=== PATIENT | male | born 1940 | race Caucasian/White ===

== ENCOUNTER → 2017-01-17 | Outpatient (CLI) | payer OTHER ==
[~2017-01-17] VITALS: Ht 185.4 cm; Wt 79.4 kg
[~2017-01-17] MED LIST: ALLEGRA ALLERGY60 MG PO; APAP650 PO; CARDIZEM; CARDIZEM CD180 MG PO; CENTRUM SILVER1 EAC4 PO; CIALIS5 MG PO; CO Q-10100 MG PO; COUMADIN 2.5MG2.5 M1 PO; COUMADIN 5 MG TA5 M1 PO; KEFLEX500 MG PO; LIPITOR 20 MG T20 M1 PO; NORCO 5-325 TA1 EACH PO; RAPAFLO4 MG PO; RHINOCORT ALL8.43 ML NASAL; SIMVASTATIN40 MG PO; TURMERIC538 MG PO; VITAMIN D1000 UNI1 PO; VITAMIN D400 UNI2 PO; XARELTO10 MG PO; ZANTAC 150MG T150 MG PO
--- NOTE | ~2017-01-17 | P ---
[facility] [place] [address] PROCEDURE REPORT Name: EMILY,HAVEN Billy Room #: REG [facility]#: [id number] Admission: 01/17/17 Attend Phys: Fortunato Herrera MD Discharge: Date of : 36 Report #: [id number] THIS REPORT FOR: //name// CC: Fortunato Godfrey MD BRIEF HISTORY: The patient is a 76-year-old male who recently was found to be anemic. He is noted dark stools on occasion, but not grossly black stools or grossly bloody stools. PREOPERATIVE DIAGNOSIS: Anemia. POSTOPERATIVE DIAGNOSES: 1. Multiple colon polyps. 2. Rectal polyp. 3. Moderate sigmoid diverticulosis coli. MEDICATIONS: Deep sedation with propofol per anesthesia. SPECIMENS: 1. Cecal polyp. 2. Hepatic flexure polyp. 3. Rectal polyp. ESTIMATED BLOOD LOSS: 3 mL. PROCEDURE: Colonoscopy to cecum and terminal ileum with biopsy. FINDINGS: Prior to propofol sedation, the procedure of colonoscopy discussed with the patient as well as potential risks, benefits, and complications. He indicates he understands and desires to proceed. With the patient in left lateral decubitus position, digital examination was completed, which revealed no abnormalities. Subsequently, the [employer] video colonoscope was introduced into the rectum and advanced under direct vision to the cecum. Done with minimal difficulty. The cecum was identified by the ileocecal valve and the appendiceal orifice. I was able to visualize the distal segment of terminal ileum, which was inspected and noted to be unremarkable. At that point, the scope was slowly withdrawn and careful circumferential views obtained including retroflexing the scope in the ascending colon. Upon slow withdrawal of the scope, the prep was noted to be excellent. The mucosa was within normal limits, normal vascular and normal light reflex. As we withdrew the scope, the mucosa was inspected. In the cecum, a diminutive polyp was seen and removed by biopsy. Scope was further withdrawn and another diminutive polyp was seen and removed by biopsy from the hepatic flexure. As we withdrew the scope through the colon, the mucosa was within normal limits, normal vascular [facility] [address] [place] [address] PROCEDURE REPORT Name: HAVEN DIAZ Room #: REG [facility]#: [id number] Admission: 01/17/17 Attend Phys: Fortunato Herrera MD Discharge: Date of : 36 Report #: [id number] pattern, normal light reflex. No additional abnormalities were seen until we reached the sigmoid colon, which he was noted to have [id number] sigmoid diverticular disease without endoscopic evidence of diverticulitis. The scope was withdrawn in the rectum and upon retroflexion, a small polyp was seen in the distal rectum just above the anal verge. This polyp was removed by biopsy. The scope was withdrawn. The patient tolerated the procedure well. CONDITION OF THE PATIENT UPON DISCHARGE: Following procedure, the patient drowsy, arousable and conversant and will be discharged home when fully ambulatory. INSTRUCTIONS TO THE PATIENT AND FAMILY AT THE TIME ON DISCHARGE: The patient was noted to be anemic. He has had some dark stools, but not grossly bloody stools. Three diminutive polyps were identified and removed as described above. A bleeding lesion was not seen. We will follow up on the pathology of the polyps. If all 3 are adenomas, he should return in 3 years, if one or two adenomas, 5 years be indicated. If none of them are adenomatous, he may not require further routine colonoscopy. He will return to care of Dr. Diana Godfrey and return to see me as needed. Last colonoscopy was in 2008. Withdrawal time from the cecum was approximately 10 minutes and 30 seconds. By: [id number] Fortunato Herrera MD /juanito
--- NOTE | ~2017-01-17 | S ---
[facility] [address] [place] [address] SURGICAL PATH RPT PROCEDURE Name: HAVEN DIAZ Room #: [facility].#: [id number] Admission: 01/17/17 Date of : 36 Discharge: Report #: [id number] Path Case #: [id number] PATHOLOGY REPORT DRAFT COLLECTION DATE: 01/17/2017 RECEIVED DATE: 01/17/2017 SPECIMEN(S) RECEIVED: A.Gastric B.Cecal polyp C.Hepatic flexure polyp D.Rectal polyp
--- NOTE | ~2017-01-17 | P ---
[facility] [place] [address] PROCEDURE REPORT Name: EMILYHAVEN Billy Room #: REG [facility]#: [id number] Admission: 01/17/17 Attend Phys: Fortunato Herrera MD Discharge: Date of : 36 Report #: [id number] THIS REPORT FOR: //name// CC: Fortunato Godfrey MD BRIEF HISTORY: The patient is a 76-year-old male with recent problem with chest pain. He also has throat clearing, has been treated empirically for silent reflux with ranitidine. PREOPERATIVE DIAGNOSES: Chest pain and mild anemia. POSTOPERATIVE DIAGNOSES: 1. Mild diffuse gastritis. 2. Small hiatus hernia. MEDICATIONS: Deep sedation with propofol per anesthesia. SPECIMEN: Biopsies of gastritis. ESTIMATED BLOOD LOSS: 3 mL. PROCEDURE: EGD with biopsy. FINDINGS: Prior to propofol sedation, the procedure of upper endoscopy discussed with the patient as well as potential risks, benefits, and complications. He indicates he understands and desires to proceed. With the patient in left lateral decubitus position, Fuji video endoscope was inserted in the cervical esophagus under direct vision without difficulty. Examination of this organ through its entire length revealed normal esophageal mucosa down the squamocolumnar junction. The squamocolumnar junction was noted to be unremarkable. No ulcers or erosions were seen. There is no evidence of Patrick mucosa. Intermittently, a 2-cm sliding type hiatus hernia was seen. The mucosa and hernia was normal. Scope was advanced in the stomach, was examined on end view as well as retroflexed views. There was erythema in the antrum, but no ulcers or erosion, biopsy obtained to evaluate for H. pylori. Upon retroflexion, no mass lesions were seen. Intermittently, a small hiatus hernia was seen. The pylorus, duodenal bulb, and postbulbar sweep were all inspected and noted to be within normal limits. At that point, the scope was slowly withdrawn and the careful circumferential views confirmed the above findings. The patient tolerated the patient well. CONDITION OF THE PATIENT UPON DISCHARGE: Following procedure, the patient drowsy and will be discharged home when fully ambulatory. [facility] [address] [place] [address] PROCEDURE REPORT Name: HAVEN DIAZ Room #: REG [facility].#: [id number] Admission: 01/17/17 Attend Phys: Fortunato Herrera MD Discharge: Date of : 36 Report #: [id number] INSTRUCTIONS TO THE PATIENT AND FAMILY AT THE TIME OF DISCHARGE: As far anemia, no bleeding lesions or ulcers were seen. We will proceed with colonoscopy at this time. As far as his chest pain, esophageal mucosa was normal. However, he potentially could have reflux disease. Also, there is concern of silent reflux for which he takes ranitidine. I suggest he take omeprazole [address] of ranitidine and on a trial basis of 3 months. If he has no improvement after 3 months, then I would discontinue. However, if he has improvement, he may continue omeprazole going forward on the lowest dose to control his symptoms of reflux. He will return to care of Dr. Diana Godfrey, return to see me as needed. By: [id number] Fortunato Herrera MD /nt
== END | disposition home or self-care (01) ==
LOC: GI 06:54
DX: K63.5 Polyp of colon (principal); K62.1 Rectal polyp; K57.30 Diverticulosis of large intestine without perforation or abscess without bleeding; R07.9 Chest pain, unspecified; K29.60 Other gastritis without bleeding; K44.9 Diaphragmatic hernia without obstruction or gangrene; I10 Essential (primary) hypertension; I48.91 Unspecified atrial fibrillation; E78.5 Hyperlipidemia, unspecified; K21.9 Gastro-esophageal reflux disease without esophagitis; N40.1 Benign prostatic hyperplasia with lower urinary tract symptoms; Z98.41 Cataract extraction status, right eye; Z79.01 Long term (current) use of anticoagulants; Z87.891 Personal history of nicotine dependence; Z98.42 Cataract extraction status, left eye; Z98.890 Other specified postprocedural states; Z79.899 Other long term (current) drug therapy